=== PATIENT | male | born 1980 | race Caucasian/White ===

== ENCOUNTER 2022-02-04 12:23 | Emergency (ER) | payer BC ==
[2022-02-04] MEDS ORDERED: Albuterol/Ipratropium 3.0-0.5 MG/3 ML Neb Soln NEB ONE (12:44)
[2022-02-04] MEDS ORDERED: methylPREDNISolone Sodium Succinate 40 MG/1 ML SDV IM ONE (13:44)
[2022-02-04] MEDS ORDERED: Albuterol 6.7 GM Inhaler INH ONE (13:44)
== END 2022-02-04 15:04 | disposition home or self-care (01) ==
LOC: JD.ED 12:23
DX: J45.909 Unspecified asthma, uncomplicated (principal); Z87.891 Personal history of nicotine dependence; Z20.822 Contact with and (suspected) exposure to COVID-19
CPT/HCPCS: 36415; 71046; 80053; 84484; 85025; 85379; 87635; 93005; 94640; 96372; 99285; A9270; J2920; J7620-GY; U0002

== ENCOUNTER 2023-06-24 09:42 | Inpatient (IN) | payer OTHER ==
[2023-06-24] MEDS ORDERED: HYDROmorphone 1 MG/ML Syringe IVPUSH ONE ×2 (10:08→12:13)
[2023-06-24] MEDS ORDERED: Metoclopramide 10 MG/2 ML SDV IVPUSH ONE (10:09)
[2023-06-24] MEDS ORDERED: Dextrose 5%-0.9% NaCl 1,000 ML IV SCH (10:15)
[2023-06-24] MEDS ORDERED: Iopamidol 612 MG/ML 100 ML Bottle IVPUSH ONE (10:24)
[2023-06-24] MEDS ORDERED: Diatrizoate Meglumine/Diatrizoate Sodium 37% 120 ML Bottle PO ONE (10:24)
[2023-06-24 10:39] LABS: BASOPHILS PERCENT AUTO 0.3 % (0.0-1.0); EOSINOPHILS ABSOLUTE AUTO 0.2 K/mm3 (0.0-0.4); EOSINOPHILS PERCENT AUTO 1.8 % (0.0-6.0); HEMATOCRIT 42.6 % (42.0-52.0); HEMOGLOBIN 14.9 gm/dl (14.0-18.0); IMMATURE GRAN ABSOLUTE AUTO 0.04 K/mm3 (0.00-0.05); IMMATURE GRAN PERCENT AUTO 0.4 % (0.0-0.4); LYMPHOCYTES ABSOLUTE AUTO 1.6 K/mm3 (1.0-4.8); LYMPHOCYTES PERCENT AUTO 15.5 % (24.0-44.0); MEAN CORPUSCULAR HEMOGLOBIN 30.8 pg (28.0-32.0); MEAN CORPUSCULAR VOLUME 88.2 fl (83.0-99.0); MEAN PLATELET VOLUME 9.4 fl (9.4-12.4); MONOCYTES ABSOLUTE AUTO 0.6 K/mm3 (0.0-0.8); MONOCYTES PERCENT AUTO 6.2 % (0.0-8.0); NEUTROPHILS ABSOLUTE AUTO 7.9 K/mm3 (1.8-7.7); NEUTROPHILS PERCENT AUTO 75.8 % (41.0-71.0); PLATELET COUNT,PLT 221 K/mm3 (150-400); RED BLOOD CELL COUNT 4.83 M/mm3 (4.52-5.90); WHITE BLOOD CELL COUNT,WBC 10.37 K/mm3 (3.9-11.3)
[2023-06-24 10:55] LABS: PROTHROMBIN TIME 10.7 SECONDS (9.7-12.0)
[2023-06-24 10:56] LABS: PTT,PARTIAL THROMBOPLSTIN TIME 27.8 SECONDS (21.7-31.4)
[2023-06-24 10:57] LABS: ALBUMIN 3.7 g/dl (3.4-5.0); ANION GAP 14.9 (5-15); BILIRUBIN TOTAL 0.7 mg/dL (0.2-1.0); C-REACTIVE PROTEIN 2.4 mg/dL (<1.0); CALCIUM 8.9 mg/dL (8.5-10.1); EST CRCL DRUG DOSING (CG) 97.33 mL/min; POTASSIUM,K 3.9 mEq/L (3.5-5.1); PROTEIN TOTAL,TP 7.6 g/dl (6.4-8.2)
[2023-06-24 11:28] LABS: APPEARANCE,URINE CLEAR (Clear); BILIRUBIN,URINE NEGATIVE (Negative); COLOR,URINE YELLOW (Yellow); GLUCOSE,URINE NEGATIVE (Negative); KETONES,URINE NEGATIVE (Negative); LEUKOCYTE ESTERASE,URINE NEGATIVE (Negative); NITRITE,URINE NEGATIVE (Negative); OCCULT BLOOD,URINE NEGATIVE (Negative); PH,URINE 6.5 (5.0-8.0); PROTEIN,URINE NEGATIVE (Negative); UROBILINOGEN,URINE 0.2 (0.2-1.0)
[2023-06-24 11:34] LABS: BACTERIA,URINE FEW /hpf (FEW); EPITHELIAL CELLS,URINE 0-5 /hpf (0-5); MUCUS,URINE FEW /hpf (FEW); RBC,URINE 0-5 /hpf (0-5); WBC,URINE 0-5 /hpf (0-5)
[2023-06-24] MEDS ORDERED: Levofloxacin/Dextrose 5%-Water 750 MG in Premix Bag 1 BAG IV ONE (12:37)
[2023-06-24] MEDS ORDERED: metroNIDAZOLE/Normal Saline 500 MG in Premix Bag 1 BAG IV ONE (12:38)
[2023-06-24] MEDS: Sennosides/Docusate Sodium 50-8.6 MG Tab PO SCH ×2 (14:38→21:07)
[2023-06-24] MEDS: Heparin Sodium 5,000 Units/ML Vial SUBCUT SCH ×2 (14:38→21:07)
[2023-06-24] MEDS: Morphine 2 MG/ML SYRINGE IVPUSH PRN ×2 (14:52→22:13)
[2023-06-24] MEDS: Lactated Ringers 1,000 ML IV SCH (14:55)
[2023-06-24] MEDS: oxyCODONE 5 MG Tab PO PRN ×2 (16:48→21:17)
[2023-06-24] MEDS: metroNIDAZOLE/Normal Saline 500 MG in Premix Bag 1 BAG IV SCH (21:06)
[2023-06-24] MEDS: Acetaminophen 325 MG Tab PO PRN (21:16)
[2023-06-25] MEDS: Lactated Ringers 1,000 ML IV SCH ×2 (02:00→13:10)
[2023-06-25] MEDS: metroNIDAZOLE/Normal Saline 500 MG in Premix Bag 1 BAG IV SCH ×3 (04:52→20:18)
[2023-06-25] MEDS: Heparin Sodium 5,000 Units/ML Vial SUBCUT SCH ×2 (04:52→13:12)
[2023-06-25] MEDS: oxyCODONE 5 MG Tab PO PRN ×5 (04:52→22:12)
[2023-06-25] MEDS: Acetaminophen 325 MG Tab PO PRN ×3 (04:54→20:16)
[2023-06-25] MEDS: Ondansetron 4 MG Tab.DIS PO PRN ×2 (05:02→20:09)
[2023-06-25 05:46] LABS: BASOPHILS PERCENT AUTO 0.4 % (0.0-1.0); EOSINOPHILS ABSOLUTE AUTO 0.1 K/mm3 (0.0-0.4); EOSINOPHILS PERCENT AUTO 1.4 % (0.0-6.0); HEMATOCRIT 41.8 % (42.0-52.0); HEMOGLOBIN 14.6 gm/dl (14.0-18.0); IMMATURE GRAN ABSOLUTE AUTO 0.03 K/mm3 (0.00-0.05); IMMATURE GRAN PERCENT AUTO 0.3 % (0.0-0.4); LYMPHOCYTES ABSOLUTE AUTO 1.7 K/mm3 (1.0-4.8); LYMPHOCYTES PERCENT AUTO 17.3 % (24.0-44.0); MEAN CORPUSCULAR HEMOGLOBIN 30.2 pg (28.0-32.0); MEAN CORPUSCULAR HGB CONC 34.9 g/dl (32.0-36.0); MEAN CORPUSCULAR VOLUME 86.4 fl (83.0-99.0); MEAN PLATELET VOLUME 9.9 fl (9.4-12.4); MONOCYTES ABSOLUTE AUTO 0.8 K/mm3 (0.0-0.8); MONOCYTES PERCENT AUTO 7.5 % (0.0-8.0); NEUTROPHILS ABSOLUTE AUTO 7.3 K/mm3 (1.8-7.7); NEUTROPHILS PERCENT AUTO 73.1 % (41.0-71.0); PLATELET COUNT,PLT 221 K/mm3 (150-400); RED BLOOD CELL COUNT 4.84 M/mm3 (4.52-5.90); WHITE BLOOD CELL COUNT,WBC 10.02 K/mm3 (3.9-11.3)
[2023-06-25 05:56] LABS: A/G RATIO 0.9 (1-2); ALBUMIN 3.6 g/dl (3.4-5.0); ANION GAP 13.7 (5-15); CALCIUM 9.1 mg/dL (8.5-10.1); EST CRCL DRUG DOSING (CG) 100.4 mL/min; POTASSIUM,K 3.7 mEq/L (3.5-5.1); PROTEIN TOTAL,TP 7.7 g/dl (6.4-8.2)
[2023-06-25] MEDS: Sennosides/Docusate Sodium 50-8.6 MG Tab PO SCH ×2 (08:56→20:16)
[2023-06-25] MEDS: Morphine 2 MG/ML SYRINGE IVPUSH PRN ×2 (11:03→20:09)
[2023-06-25] MEDS: Levofloxacin/Dextrose 5%-Water 500 MG in Premix Bag 1 BAG IV SCH (13:16)
[2023-06-26] MEDS: Morphine 2 MG/ML SYRINGE IVPUSH PRN ×3 (01:08→20:50)
[2023-06-26] MEDS: Lactated Ringers 1,000 ML IV SCH (01:17)
[2023-06-26] MEDS: metroNIDAZOLE/Normal Saline 500 MG in Premix Bag 1 BAG IV SCH ×3 (05:38→20:50)
[2023-06-26 05:39] LABS: BASOPHILS PERCENT AUTO 0.2 % (0.0-1.0); EOSINOPHILS ABSOLUTE AUTO 0.2 K/mm3 (0.0-0.4); EOSINOPHILS PERCENT AUTO 2.4 % (0.0-6.0); HEMATOCRIT 39.5 % (42.0-52.0); HEMOGLOBIN 13.5 gm/dl (14.0-18.0); IMMATURE GRAN ABSOLUTE AUTO 0.02 K/mm3 (0.00-0.05); IMMATURE GRAN PERCENT AUTO 0.2 % (0.0-0.4); LYMPHOCYTES ABSOLUTE AUTO 1.7 K/mm3 (1.0-4.8); LYMPHOCYTES PERCENT AUTO 17.1 % (24.0-44.0); MEAN CORPUSCULAR HEMOGLOBIN 30.3 pg (28.0-32.0); MEAN CORPUSCULAR HGB CONC 34.2 g/dl (32.0-36.0); MEAN CORPUSCULAR VOLUME 88.6 fl (83.0-99.0); MEAN PLATELET VOLUME 9.2 fl (9.4-12.4); MONOCYTES ABSOLUTE AUTO 0.8 K/mm3 (0.0-0.8); MONOCYTES PERCENT AUTO 8.5 % (0.0-8.0); NEUTROPHILS PERCENT AUTO 71.6 % (41.0-71.0); PLATELET COUNT,PLT 215 K/mm3 (150-400); RED BLOOD CELL COUNT 4.46 M/mm3 (4.52-5.90); WHITE BLOOD CELL COUNT,WBC 9.78 K/mm3 (3.9-11.3)
[2023-06-26] MEDS: oxyCODONE 5 MG Tab PO PRN ×4 (05:41→23:07)
[2023-06-26] MEDS: Acetaminophen 325 MG Tab PO PRN (05:42)
[2023-06-26 05:57] LABS: A/G RATIO 0.8 (1-2); ALBUMIN 3.1 g/dl (3.4-5.0); ANION GAP 9.8 (5-15); BILIRUBIN TOTAL 0.6 mg/dL (0.2-1.0); CALCIUM 8.7 mg/dL (8.5-10.1); EST CRCL DRUG DOSING (CG) 100.4 mL/min; POTASSIUM,K 3.8 mEq/L (3.5-5.1); PROTEIN TOTAL,TP 6.8 g/dl (6.4-8.2)
[2023-06-26] MEDS: Sennosides/Docusate Sodium 50-8.6 MG Tab PO SCH ×2 (08:55→20:50)
[2023-06-26] MEDS: Levofloxacin/Dextrose 5%-Water 500 MG in Premix Bag 1 BAG IV SCH (14:21)
[2023-06-27] MEDS: metroNIDAZOLE/Normal Saline 500 MG in Premix Bag 1 BAG IV SCH ×2 (05:09→12:16)
[2023-06-27 05:25] LABS: BASOPHILS PERCENT AUTO 0.3 % (0.0-1.0); EOSINOPHILS ABSOLUTE AUTO 0.2 K/mm3 (0.0-0.4); EOSINOPHILS PERCENT AUTO 2.4 % (0.0-6.0); HEMOGLOBIN 13.9 gm/dl (14.0-18.0); IMMATURE GRAN ABSOLUTE AUTO 0.03 K/mm3 (0.00-0.05); IMMATURE GRAN PERCENT AUTO 0.3 % (0.0-0.4); LYMPHOCYTES ABSOLUTE AUTO 1.5 K/mm3 (1.0-4.8); MEAN CORPUSCULAR HEMOGLOBIN 29.9 pg (28.0-32.0); MEAN CORPUSCULAR HGB CONC 34.8 g/dl (32.0-36.0); MEAN PLATELET VOLUME 9.9 fl (9.4-12.4); MONOCYTES ABSOLUTE AUTO 0.8 K/mm3 (0.0-0.8); MONOCYTES PERCENT AUTO 8.9 % (0.0-8.0); NEUTROPHILS ABSOLUTE AUTO 6.3 K/mm3 (1.8-7.7); NEUTROPHILS PERCENT AUTO 71.1 % (41.0-71.0); PLATELET COUNT,PLT 237 K/mm3 (150-400); RED BLOOD CELL COUNT 4.65 M/mm3 (4.52-5.90); WHITE BLOOD CELL COUNT,WBC 8.92 K/mm3 (3.9-11.3)
[2023-06-27 05:27] LABS: ANION GAP 13.4 (5-15); EST CRCL DRUG DOSING (CG) 100.4 mL/min; POTASSIUM,K 3.4 mEq/L (3.5-5.1)
[2023-06-27] MEDS: Morphine 2 MG/ML SYRINGE IVPUSH PRN ×2 (06:18→10:47)
[2023-06-27] MEDS: Acetaminophen 325 MG Tab PO PRN ×2 (06:18→20:09)
[2023-06-27] MEDS: oxyCODONE 5 MG Tab PO PRN (08:48)
[2023-06-27] MEDS: Sennosides/Docusate Sodium 50-8.6 MG Tab PO SCH ×2 (08:49→20:01)
[2023-06-27] MEDS ORDERED: Potassium Chloride 20 MEQ Tab.ER PO ONE (10:28)
[2023-06-27] MEDS: Levofloxacin/Dextrose 5%-Water 500 MG in Premix Bag 1 BAG IV SCH (12:14)
[2023-06-27] MEDS: Acetaminophen/HYDROcodone 325-10 MG Tab PO PRN (14:18)
[2023-06-27] MEDS: metroNIDAZOLE 500 MG Tab PO SCH (20:01)
[2023-06-28] MEDS: Acetaminophen/HYDROcodone 325-10 MG Tab PO PRN (04:40)
[2023-06-28] MEDS: metroNIDAZOLE 500 MG Tab PO SCH ×2 (04:40→12:42)
[2023-06-28 06:08] LABS: ANION GAP 11.5 (5-15); BUN/CREATININE RATIO 6.4 (14-18); C-REACTIVE PROTEIN 8.2 mg/dL (<1.0); CALCIUM 9.4 mg/dL (8.5-10.1); CREATININE 1.1 mg/dL (0.7-1.3); EST CRCL DRUG DOSING (CG) 91.27 mL/min; POTASSIUM,K 3.5 mEq/L (3.5-5.1)
[2023-06-28] MEDS: Sennosides/Docusate Sodium 50-8.6 MG Tab PO SCH (08:22)
[2023-06-28] MEDS ORDERED: Levofloxacin 750 MG Tab PO SCH (13:00)
== END 2023-06-28 12:48 | disposition home or self-care (01) | DRG 395 ==
LOC: JD.ED 09:42 → JD.MS 13:01
PROVIDERS: ADMIT Internal Medicine; ATTEND Internal Medicine
DX: K61.1 Rectal abscess (principal); J45.20 Mild intermittent asthma, uncomplicated; F41.9 Anxiety disorder, unspecified; F32.A Depression, unspecified; N41.9 Inflammatory disease of prostate, unspecified; F17.210 Nicotine dependence, cigarettes, uncomplicated; E87.6 Hypokalemia; K62.89 Other specified diseases of anus and rectum; Z98.890 Other specified postprocedural states; Z87.19 Personal history of other diseases of the digestive system; Z93.3 Colostomy status; Z93.2 Ileostomy status
CPT/HCPCS: 36415; 74177; 74177-26; 80048; 80053; 81001; 83605; 83735; 85025; 85610; 85730; 86140; 87040; 96361; 96374; 96375; 96376; 99222; 99232; 99239; 99284; 99285-25; A9270-GY; J1170; J1644; J1836; J1956; J2270; J2765; J7042; J7120; Q9963; Q9967

== ENCOUNTER 2024-01-22 07:54 | Emergency (ER) | payer OTHER ==
[2024-01-22 09:06] LABS: APPEARANCE,URINE CLEAR (Clear); BILIRUBIN,URINE NEGATIVE (Negative); COLOR,URINE YELLOW (Yellow); GLUCOSE,URINE NEGATIVE (Negative); KETONES,URINE NEGATIVE (Negative); LEUKOCYTE ESTERASE,URINE NEGATIVE (Negative); NITRITE,URINE NEGATIVE (Negative); OCCULT BLOOD,URINE TRACE-INTACT (Negative); PROTEIN,URINE NEGATIVE (Negative); UROBILINOGEN,URINE 0.2 (0.2-1.0)
[2024-01-22 09:14] LABS: BACTERIA,URINE RARE /hpf (FEW); EPITHELIAL CELLS,URINE 0-5 /hpf (0-5); MUCUS,URINE NOT SEEN /hpf (FEW); RBC,URINE 0-5 /hpf (0-5); WBC,URINE 0-5 /hpf (0-5)
[2024-01-22] MEDS: Acetaminophen/oxyCODONE 325-5 MG Tab PO ONE (09:24)
[2024-01-22] MEDS: Cyclobenzaprine 10 MG Tab PO ONE (09:24)
[2024-01-22] MEDS: Amoxicillin/Clavulanate K 875-125 MG Tab PO ONE (11:11)
== END 2024-01-22 11:13 | disposition home or self-care (01) ==
LOC: JD.ED 07:54
DX: S39.012A Strain of muscle, fascia and tendon of lower back, initial encounter (principal); H66.004 Acute suppurative otitis media without spontaneous rupture of ear drum, recurrent, right ear; I10 Essential (primary) hypertension; Z79.899 Other long term (current) drug therapy; X58.XXXA Exposure to other specified factors, initial encounter
CPT/HCPCS: 72100; 81001; 99283; A9270

== ENCOUNTER 2024-01-22 18:51 | Emergency (ER) | payer OTHER ==
[2024-01-22 20:18] LABS: BASOPHILS PERCENT AUTO 0.2 % (0.0-1.0); EOSINOPHILS ABSOLUTE AUTO 0.4 K/mm3 (0.0-0.4); EOSINOPHILS PERCENT AUTO 8.3 % (0.0-6.0); HEMATOCRIT 43.1 % (42.0-52.0); HEMOGLOBIN 14.7 gm/dl (14.0-18.0); IMMATURE GRAN ABSOLUTE AUTO 0.04 K/mm3 (0.00-0.05); IMMATURE GRAN PERCENT AUTO 0.9 % (0.0-0.4); LYMPHOCYTES ABSOLUTE AUTO 0.3 K/mm3 (1.0-4.8); LYMPHOCYTES PERCENT AUTO 6.7 % (24.0-44.0); MEAN CORPUSCULAR HEMOGLOBIN 30.2 pg (28.0-32.0); MEAN CORPUSCULAR HGB CONC 34.1 g/dl (32.0-36.0); MEAN CORPUSCULAR VOLUME 88.7 fl (83.0-99.0); MEAN PLATELET VOLUME 8.9 fl (9.4-12.4); MONOCYTES ABSOLUTE AUTO 0.3 K/mm3 (0.0-0.8); MONOCYTES PERCENT AUTO 6.9 % (0.0-8.0); NEUTROPHILS ABSOLUTE AUTO 3.3 K/mm3 (1.8-7.7); PLATELET COUNT,PLT 143 K/mm3 (150-400); RED BLOOD CELL COUNT 4.86 M/mm3 (4.52-5.90); WHITE BLOOD CELL COUNT,WBC 4.33 K/mm3 (3.9-11.3)
[2024-01-22] MEDS: Ondansetron 4 MG/2 ML SDV IVPUSH ONE (20:26)
[2024-01-22] MEDS: Ketorolac 30 MG/ML SDV IVPUSH ONE (20:26)
[2024-01-22] MEDS: cefTRIAXone 1 GM in Sodium Chloride 0.9% 100 ML IV ONE (20:27)
[2024-01-22] MEDS: Sodium Chloride 0.9% 10 ML Syringe FLUSH PRN (20:28)
[2024-01-22 20:54] LABS: A/G RATIO 1.1 (1-2); ALBUMIN 3.8 g/dl (3.4-5.0); ANION GAP 11.2 (5-15); BILIRUBIN TOTAL 0.3 mg/dL (0.2-1.0); BUN/CREATININE RATIO 8.2 (14-18); CALCIUM 8.8 mg/dL (8.5-10.1); CREATININE 1.1 mg/dL (0.7-1.3); EST CRCL DRUG DOSING (CG) 87.56 mL/min; MAGNESIUM 2.2 mg/dL (1.8-2.4); POTASSIUM,K 4.2 mEq/L (3.5-5.1); PROTEIN TOTAL,TP 7.4 g/dl (6.4-8.2)
[2024-01-22 22:04] LABS: CORONAVIRUS COVID-19 NAA NEGATIVE (NEGATIVE); INFLUENZA A NAA NEGATIVE (NEGATIVE); RESPIRATORY SYNCYTIAL VIR NAA NEGATIVE (NEGATIVE)
[2024-01-23] MEDS ORDERED: Ibuprofen 600 MG Tab PO ONE (00:43)
== END 2024-01-23 01:02 | disposition home or self-care (01) ==
LOC: JD.ED 18:51
DX: B34.9 Viral infection, unspecified (principal); H66.001 Acute suppurative otitis media without spontaneous rupture of ear drum, right ear; I10 Essential (primary) hypertension; Z79.899 Other long term (current) drug therapy
CPT/HCPCS: 0241U; 36415; 74176; 80053; 83735; 85025; 86140; 87651; 96365; 96375; 99284; J0696; J1885; J2405; J3490